=== PATIENT | female | born 1945 | race Native Hawaiian/Other Pacific Islander ===

== ENCOUNTER → 2016-08-12 | Outpatient (CLI) | payer MEDICARE ==
[~2016-08-12] MED LIST: ASPI81CH3; CALCCHW25 PO; FLUO20TA20 PO; GLUCTAB PO; LISI-357 PO; METO50TA PO; NITR.4 SL; PRAV40TA PO; SYNT88TA PO
[2016-08-12 09:52] LABS: ALKALINE PHOSPHATASE 72 U/L (45-117); ALT (GPT) 41 U/L (10-53); ANION GAP 9 MEQ/L (5-15); AST (GOT) 33 U/L (15-37); BICARBONATE 28.8 MEQ/L (21.0-32.0); BLOOD UREA NITROGEN 16 MG/DL (7-18); CHLORIDE 101 MEQ/L (98-107); FREE T4 1.12 NG/DL (0.76-1.46); GLOMERULAR FILTRATION RATE 81 ML/MIN (>89); GLUCOSE,FASTING 107 MG/DL (74-99); HDL CHOLESTEROL 48.3 MG/DL (40.0-60.0); LDL CHOLESTEROL 81 MG/DL (0-99); POTASSIUM 3.7 MEQ/L (3.5-5.1); SODIUM (NA) 139 MEQ/L (136-145); TOTAL BILIRUBIN ADULT 0.7 MG/DL (0.2-1.0)
[2016-08-12 13:06] LABS: MICRO ALBUMIN RANDOM URINE RAW 17.2 MG/L (0.0-30.0)
[2016-08-12 16:22] LABS: HEMOGLOBIN A1a 0.9 %; HEMOGLOBIN Ao 84.7 %; HEMOGLOBIN LA1C 1.8 %; HEMOGLOBIN P3 3.7 %
== END ==
LOC: PLAB 07:52
PROVIDERS: ATTEND Internal Medicine Endocrinology, Diabetes & Metabolism
DX: E11.9 Type 2 diabetes mellitus without complications (principal); I10 Essential (primary) hypertension; E78.5 Hyperlipidemia, unspecified; E03.9 Hypothyroidism, unspecified; E55.9 Vitamin D deficiency, unspecified
CPT/HCPCS: 36415; 80053; 80061; 82043; 82306; 83036; 84439; 84443

== ENCOUNTER → 2017-02-16 | Outpatient (CLI) | payer MEDICARE ==
[2017-02-16 14:11] LABS: ANION GAP 8 MEQ/L (5-15); AST (GOT) 44 U/L (15-37); BICARBONATE 27.9 MEQ/L (21.0-32.0); BLOOD UREA NITROGEN 13 MG/DL (7-18); CHLORIDE 102 MEQ/L (98-107); GLOMERULAR FILTRATION RATE 87 ML/MIN (>89); GLUCOSE,FASTING 122 MG/DL (74-99); POTASSIUM 4.3 MEQ/L (3.5-5.1); SODIUM (NA) 138 MEQ/L (136-145)
[2017-02-16 14:21] LABS: ALKALINE PHOSPHATASE 72 U/L (45-117); ALT (GPT) 48 U/L (10-53); FREE T4 1.02 NG/DL (0.76-1.46); HDL CHOLESTEROL 54.9 MG/DL (40.0-60.0); LDL CHOLESTEROL 84 MG/DL (0-99); TOTAL BILIRUBIN ADULT 0.9 MG/DL (0.2-1.0)
[2017-02-16 22:12] LABS: HEMOGLOBIN A1a 0.9 %; HEMOGLOBIN Ao 84.1 %; HEMOGLOBIN P3 3.8 %
== END ==
LOC: PLAB 08:22
PROVIDERS: ATTEND Internal Medicine Endocrinology, Diabetes & Metabolism
DX: E11.9 Type 2 diabetes mellitus without complications (principal); I10 Essential (primary) hypertension; E78.5 Hyperlipidemia, unspecified; E03.9 Hypothyroidism, unspecified
CPT/HCPCS: 36415; 80053; 80061; 83036; 84439; 84443

== ENCOUNTER → 2017-05-18 | Outpatient (CLI) | payer MEDICARE ==
[2017-05-18 13:30] LABS: AST (GOT) 42 U/L (15-37); BICARBONATE 24.7 MEQ/L (21.0-32.0); BLOOD UREA NITROGEN 7 MG/DL (7-18); CALCIUM 9.5 MG/DL (8.5-10.1); CHLORIDE 102 MEQ/L (98-107); CREATININE 0.65 MG/DL (0.50-1.00); GLOMERULAR FILTRATION RATE 90 ML/MIN (>89); GLUCOSE,FASTING 108 MG/DL (74-99); SODIUM (NA) 139 MEQ/L (136-145)
[2017-05-18 13:31] LABS: CHOLESTEROL 124 MG/DL (120-200)
[2017-05-18 13:41] LABS: ALKALINE PHOSPHATASE 63 U/L (45-117); ALT (GPT) 42 U/L (10-53); FREE T4 1.49 NG/DL (0.76-1.46); HDL CHOLESTEROL 49.5 MG/DL (40.0-60.0); LDL CHOLESTEROL 55 MG/DL (0-99); TOTAL BILIRUBIN ADULT 1.2 MG/DL (0.2-1.0); TOTAL PROTEIN 8.1 GM/DL (6.4-8.2); TRIGLYCERIDES 97 MG/DL (42-150)
[2017-05-18 18:26] LABS: HEMOGLOBIN A1C 5.5 % (4.3-6.0)
== END ==
LOC: PLAB 10:05
PROVIDERS: ATTEND Internal Medicine Endocrinology, Diabetes & Metabolism
DX: E11.9 Type 2 diabetes mellitus without complications (principal); I10 Essential (primary) hypertension; E78.5 Hyperlipidemia, unspecified; E03.9 Hypothyroidism, unspecified
CPT/HCPCS: 36415; 80053; 80061; 83036; 84439; 84443

== ENCOUNTER 2017-07-17 11:31 | Emergency (ER) | payer MEDICARE, MEDICAID ==
[~2017-07-17] VITALS: Ht 157.5 cm; Wt 75.0 kg
[2017-07-17 11:36] VITALS: BP 155/75; PULSE 85; RESP 16; TEMP 98.8; O2SAT 98
[2017-07-17] MEDS ORDERED: ASPI-516 CHEW (11:48)
[2017-07-17] MEDS ORDERED: PRAV40TA PO (11:48)
[2017-07-17] MEDS ORDERED: METO50TA PO (11:48)
[2017-07-17] MEDS ORDERED: NITR1SUB3 SL (11:48)
[2017-07-17] MEDS ORDERED: GLUCTAB PO (11:48)
[2017-07-17] MEDS ORDERED: LISI-519 PO (11:48)
[2017-07-17] MEDS ORDERED: SYNT88TA PO (11:48)
[2017-07-17] MEDS ORDERED: FLUO20CA12 PO (11:48)
--- NOTE | 2017-07-17 12:05 | PD ---
HPI Chief Complaint: Fall Time Seen by Provider: 11:46 Travel History International Travel<30 days: No Contact w/Intl Traveler<30days: No Traveled to known affect area: No History of Present Illness HPI 71-year-old female that presents to the ED for evaluation of fall. Per patient she tripped and fell yesterday. Per patient she injured the right foot as well as the left knee. Per patient the pain hurts worse when she puts weight on it. Per patient the pain is 6 out of 10. Denies any prior injuries. She does have an abrasion and swelling noted to the left knee cap. Denies any numbness, tingling, weakness. Denies hitting his head or losing consciousness. Denies any back or neck pain. Pain more to the knee 10 to the foot. She is able to ambulate but with some limp. Allergies to adhesives as well as promethazine. No other medical issues reported this time. Denies taking any blood thinners. PFSH Past Medical History Depression: Yes Heart Rhythm Problems: Yes Cancer: No Cardiovascular Problems: Yes High Cholesterol: Yes Diabetes: Yes Patient Takes Glucophage: Yes Diminished Hearing: No Endocrine: Yes Genitourinary: No Hypertension: Yes (CONTROLLED) Immune Disorder: No Implanted Vascular Access Dvce: No Musculoskeletal: Yes Neurologic: No Psychiatric: No Reproductive: No Respiratory: No Immunizations Current: Yes Thyroid Disease: Yes ?: Not Menopausal: Yes Past Surgical History Abdominal Surgery: Yes (ABDOMINOPLASTY) Gynecologic Surgery: Yes (HYSTERECTOMY) Hysterectomy: Yes Pacemaker: No Other Surgery: Yes Social History Alcohol Use: No Tobacco Use: No Substance Use: No (Denies.) Allergies-Medications (Allergen,Severity, Reaction): Coded Allergies: adhesive (Unverified Allergy, Mild, Itching, 07/17/17) promethazine (Unverified Allergy, Unknown, 07/17/17) Reported Meds & Prescriptions Reported Meds & Active Scripts Active Mupirocin Topical (Mupirocin) 2 % Oint 1 Applic TOPICAL BID Diclofenac Sodium DR (Diclofenac Sodium) 75 Mg Tabdr 75 Mg PO BID PRN Reported Synthroid (Levothyroxine Sodium) 88 Mcg Tab 88 Mcg PO DAILY Pravachol (Pravastatin) 40 Mg Tab 40 Mg PO DAILY Nitroglycerin SL (Nitroglycerin) 0.4 Mg Subl 0.4 Mg SL DIRECTED PRN ONE TABLET UNDER THE TONGUE NEEDED FOR CHEST PAIN, MAY REPEAT EVERY FIVE MINUTES FOR A TOTAL OF 3 DOSES OR CALL 911 IF NO RELIEF Metoprolol Tartrate 50 Mg Tab 50 Mg PO BID Glucophage XR (Metformin HCl) 500 Mg Hedy 500 Mg PO BID With evening meal Lisinopril 5 Mg Tab 5 Mg PO DAILY Fluoxetine (Fluoxetine HCl) 20 Mg Capsule 20 Mg PO DAILY Aspirin 81 Mg Chew 81 Mg CHEW DAILY Review of Systems Except as stated in HPI: all other systems reviewed are Neg Physical Exam Narrative GENERAL: SKIN: Warm and dry. HEAD: Atraumatic. Normocephalic. EYES: Pupils equal and round. No scleral icterus. No injection or drainage. ENT: No nasal bleeding or discharge. Mucous membranes pink and moist. NECK: Trachea midline. No JVD. CARDIOVASCULAR: Regular rate and rhythm. RESPIRATORY: No accessory muscle use. Clear to auscultation. Breath sounds equal bilaterally. GASTROINTESTINAL: Abdomen soft, non-tender, nondistended. Hepatic and splenic margins not palpable. MUSCULOSKELETAL: Extremities without clubbing, cyanosis, or edema. No obvious deformities. Patient has full range of motion of the left knee. Patient has an abrasion to the left knee. Tenderness to palpation in this area. Able to flex it fully. Able to extend it fully. Patient does have reproducible pain on the right foot on the lateral aspect of the foot itself. Good capillary refill. 2+ pulses bilaterally. No lumbar, thoracic, cervical spine tenderness to palpation. Full range of motion of the upper extremities. NEUROLOGICAL: Awake and alert. No obvious cranial nerve deficits. Motor grossly within normal limits. Five out of 5 muscle strength in the arms and legs. Normal speech. PSYCHIATRIC: Appropriate mood and affect; insight and judgment normal. Data Data Last Documented VS Vital Signs Date Time Temp Pulse Resp B/P (MAP) Pulse Ox O2 Delivery O2 Flow Rate FiO2 07/17/17 11:36 98.8 85 16 155/75 (101) 98 Orders Orders Foot, Complete ([id number]) (07/17/17 11:49) Knee, Complete (4vws) (07/17/17 11:49) Ice/Cold Pack (07/17/17 11:49) Tetanus/Diphtheria Tox Adult (Tetanus/Di (07/17/17 12:15) Splint Or Brace Apply/Monitor (07/17/17 12:10) Ed Discharge Order (07/17/17 12:13) [facility] Medical Decision Making Medical Screen Exam Complete: Yes Emergency Medical Condition: Yes Medical Record Reviewed: Yes Interpretation(s) xray of foot negative xray of knee negative Differential Diagnosis Fracture versus sprain versus strain versus bruise versus contusion Narrative Course 71-year-old female that presents to the ED for evaluation of injury to the left knee and right foot. Patient was properly examined and was found to have signs and symptoms concerning for bony injuries. X-rays were done. X-rays were negative for acute disease. Patient was reassured. Patient given prescriptions for diclofenac sodium and mupirocin cream to apply to the area. Patient was given Walter wrap. Told to apply ice or warm compresses. Follow-up with PCP. See ED worsening symptoms. Diagnosis Primary Impression: Contusion of left knee Qualified Codes: S80.02XA - Contusion of left knee, initial encounter Additional Impression: Foot contusion Qualified Codes: S90.31XA - Contusion of right foot, initial encounter Patient Instructions: General Instructions Additional Instructions: Take medications as prescribed. Follow-up with PCP. See ED for any worsening symptoms. Do not drink or drive while taking pain medication. Apply ice or heat as needed for pain Med/Other Pt SpecificInfo: Prescription(s) given Scripts Mupirocin Topical (Mupirocin Topical) 2 % Oint 1 APPLIC TOPICAL BID for Mgmt Bacterial Infection, #1 TUBE 0 Refills Prov: Simon Sullivan MD 07/17/[address] (Diclofenac Sodium DR) 75 Mg Tabdr 75 MG PO BID Y for PAIN SCALE 1 TO 10, #20 TAB 0 Refills Prov: Simon Sullivan MD 07/17/17 Disposition: 01 DISCHARGE HOME Condition: Stable Julio César Araujo Jul 17, 2017 12:05
[2017-07-17] MEDS ORDERED: DICL75TA PO (12:11)
[2017-07-17] MEDS ORDERED: MUPI2OIN TOPICAL (12:11)
--- NOTE | 2017-07-17 12:11 | RADRPT ---
EXAM DATE/TIME: 07/17/2017 11:55 [facility] COMPARISON: No previous studies available for comparison. INDICATIONS : Right foot pain post fall. MEDICAL HISTORY : None. SURGICAL HISTORY : None. ENCOUNTER: Initial ACUITY: 2 days PAIN SCORE: 5/10 LOCATION: Right anterior foot FINDINGS: Three view examination of the right foot demonstrates no soft tissue swelling, dislocation, or fractu re. The tarsal bones appear intact. The interphalangeal and metatarsophalangeal joints are intact. The calcaneus is intact. Bony mineralization is normal. CONCLUSION: No acute disease. Vicente Reyes MD on July 17, 2017 at 12:09 Board Certified Radiologist. This report was verified electronically.
--- NOTE | 2017-07-17 12:12 | RADRPT ---
EXAM DATE/TIME: 07/17/2017 11:55 [facility] COMPARISON: No previous studies available for comparison. INDICATIONS : Left knee pain post fall MEDICAL HISTORY : None. SURGICAL HISTORY : None. ENCOUNTER: Initial ACUITY: 2 days PAIN SCORE: 6/10 LOCATION: Left anterior knee FINDINGS: Mild decreased bone density. 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 No signi ficant effusion. Mild patellar osteophytosis. No fracture or dislocation. CONCLUSION: No acute disease. Vicente Reyes MD on July 17, 2017 at 12:10 Board Certified Radiologist. This report was verified electronically.
[2017-07-17] MEDS ORDERED: TETANUS/DIPHTHERIA TOXOID ADULT 0.5 ML VIAL IM ONE (12:15)
== END 2017-07-17 12:35 | disposition home or self-care (01) ==
LOC: PHEFT 11:31
DX: S80.02XA Contusion of left knee, initial encounter (principal); S90.31XA Contusion of right foot, initial encounter; I10 Essential (primary) hypertension; E78.00 Pure hypercholesterolemia, unspecified; E11.9 Type 2 diabetes mellitus without complications; E07.9 Disorder of thyroid, unspecified; F32.9 Major depressive disorder, single episode, unspecified; Z79.84 Long term (current) use of oral hypoglycemic drugs; Z79.82 Long term (current) use of aspirin; Z23 Encounter for immunization; W01.0XXA Fall on same level from slipping, tripping and stumbling without subsequent striking against object, initial encounter
CPT/HCPCS: 73564; 73630; 90471; 90714

== ENCOUNTER → 2017-08-24 | Outpatient (CLI) | payer MEDICARE, MEDICAID ==
[~2017-08-24] MED LIST changes: +ASPI-516 CHEW; -ASPI81CH3; -CALCCHW25 PO; +DICL75TA PO; +FLUO20CA12 PO; -FLUO20TA20 PO; -LISI-357 PO; +LISI-519 PO; +MUPI2OIN TOPICAL; -NITR.4 SL; +NITR1SUB3 SL
[2017-08-24 10:21] LABS: ALBUMIN 3.8 GM/DL (3.4-5.0); AST (GOT) 22 U/L (15-37); BICARBONATE 26.8 MEQ/L (21.0-32.0); BLOOD UREA NITROGEN 15 MG/DL (7-18); CALCIUM 9.6 MG/DL (8.5-10.1); CHLORIDE 104 MEQ/L (98-107); CREATININE 0.74 MG/DL (0.50-1.00); GLOMERULAR FILTRATION RATE 77 ML/MIN (>89); GLUCOSE,FASTING 107 MG/DL (74-99); SODIUM (NA) 140 MEQ/L (136-145)
[2017-08-24 10:23] LABS: CHOLESTEROL 135 MG/DL (120-200)
[2017-08-24 10:33] LABS: ALKALINE PHOSPHATASE 72 U/L (45-117); ALT (GPT) 25 U/L (10-53); CHOLESTEROL/ HDL RATIO 2.44 RATIO; FREE T4 1.36 NG/DL (0.76-1.46); HDL CHOLESTEROL 55.3 MG/DL (40.0-60.0); LDL CHOLESTEROL 59 MG/DL (0-99); TOTAL PROTEIN 8.2 GM/DL (6.4-8.2); TRIGLYCERIDES 102 MG/DL (42-150)
[2017-08-24 18:21] LABS: HEMOGLOBIN A1C 5.4 % (4.3-6.0)
== END ==
LOC: PLAB 08:14
PROVIDERS: ATTEND Family Medicine
DX: E11.9 Type 2 diabetes mellitus without complications (principal); I10 Essential (primary) hypertension; E78.5 Hyperlipidemia, unspecified; E03.9 Hypothyroidism, unspecified; E55.9 Vitamin D deficiency, unspecified
CPT/HCPCS: 36415; 80053; 80061; 82306; 83036; 84439; 84443

== ENCOUNTER → 2017-09-05 | Outpatient (CLI) | payer MEDICARE, MEDICAID ==
[2017-09-05 19:10] LABS: AMORPHOUS SEDIMENT, URINE RARE; BACTERIA, URINE OCC /hpf; BILIRUBIN, URINE NEG (NEG); BLOOD, URINE NEG (NEG); GLUCOSE,URINE NEG (NEG); KETONE, URINE NEG (NEG); NITRITE,URINE POS (NEG); PH, URINE 6.5 (5.0-8.5); SQUAMOUS EPITHELIAL CELL URINE 6 /hpf (0-5); TRANSITIONAL EPI CELLS, URINE <1 /hpf; URINE COLOR LIGHT-YELLOW (YELLW/STRAW); URINE LEUKOCYTE ESTERASE LARGE (NEG)
== END ==
LOC: PLAB 13:14
PROVIDERS: ATTEND Internal Medicine Endocrinology, Diabetes & Metabolism
DX: N39.0 Urinary tract infection, site not specified (principal); B96.20 Unspecified Escherichia coli [E. coli] as the cause of diseases classified elsewhere
CPT/HCPCS: 81001; 87077; 87086; 87186